=== PATIENT | female | born 1985 | race Caucasian/White ===

== ENCOUNTER 2018-05-11 06:30 | Inpatient (IN) ==
[~2018-05-11 06:30] MED LIST: ANCEF 1 GRAM IV PREMIX* 1 G/50 ML BAG IV ONE; D5 1/2 NS 1000 ML 1,000 ML IV ONE; D5LR 1L W PITOCIN 10 UNITS/L 10 UNITS/1,000 ML BAG IV ONE; PITOCIN ONE
[2018-05-11] MEDS ORDERED: REGLAN INJ 10 MG VIAL IVP PRN ×2 (06:38→17:04)
[2018-05-11] MEDS ORDERED: D5 1/2 NS 1000 ML 1,000 ML IV SCH (06:38)
[2018-05-11] MEDS ORDERED: PHENERGAN INJ 25 MG IV PRN ×2 (06:38→16:34)
[2018-05-11] MEDS ORDERED: PITOCIN IVP ONE (06:38)
[2018-05-11] MEDS ORDERED: NUBAIN INJ 200 MG VIAL MULTIDOSE IVP PRN (06:38)
[2018-05-11] MEDS ORDERED: D5LR 1L W PITOCIN 10 UNITS/L 10 UNITS/1,000 ML BAG IV PRN (06:38)
[2018-05-11] MEDS ORDERED: MORPHINE SULFATE INJ 2 MG INJ IVP PRN (06:38)
--- NOTE | 2018-05-11 07:11 | DR.OB ---
OB Quick Note - Assessment/Plan Assessment/Plan: L&D 05/11/18 at 7:05am S-No complaint. O-Afebrile,VSS NZN=742 with good LTV, +accel, no decel. CTX=none CVX=2cm/50%/-1/VTX AROM with clear fluid. IUPC and FSE placed. A-IUP at 38 6/7 weeks for induction A1DM CHTN P-Begin pitocin induction F/U labs Anticipate with PP BTL as desired
[2018-05-11 07:14] LABS: URIC ACID 4.9 mg/dL (2.6-6.0)
[2018-05-11] MEDS: NORMODYNE TAB 100 MG PO SCH ×4 (07:16→21:21)
[2018-05-11] MEDS ORDERED: NORMODYNE TAB 100 MG ONE (07:17)
[2018-05-11] MEDS ORDERED: ZOFRAN INJ 4 MG VIAL ONE (09:42)
[2018-05-11] MEDS ORDERED: DIPRIVAN VIAL ONE (09:42)
[2018-05-11] MEDS ORDERED: XYLOCAINE 2 % (PLAIN) ONE (09:42)
[2018-05-11] MEDS ORDERED: LR 1000 ML IV 1,000 ML IV ONE ×2 (11:30→12:55)
[2018-05-11] MEDS ORDERED: XYLOCAINE 1 % (PLAIN) ONE (11:30)
[2018-05-11] MEDS ORDERED: NAROPIN EPIDURAL 0.2% + FENTANYL 90MCG 60 ML EPI ONE (11:31)
[2018-05-11] MEDS ORDERED: FENTANYL INJ 100 mcg ONE (11:31)
[2018-05-11] MEDS ORDERED: ADRENALINE CHL INJ ONE (11:31)
--- NOTE | 2018-05-11 11:57 | DR.OB ---
OB Quick Note - Assessment/Plan Assessment/Plan: L&D 05/11/18 at 11:50am Pitocin=16mu/min. S-No complaint. O-Afebrile,VSS FXH=816 with good LTV, +accel, no decel. CTX=q 1 1/2 to 2 min., about 45-65mmHg CVX=3cm/75%/-1 A-IUP at 38 6/7 weeks for induction A1DM CHTN P-Cont. pitocin induction Anticipate
[2018-05-11] MEDS ORDERED: XYLOCAINE 2% and EPINEPHRINE 1:100,000 ONE (12:54)
[2018-05-11] MEDS ORDERED: FENTANYL INJ 100 mcg EPI ONE (12:57)
[2018-05-11] MEDS ORDERED: NAROPIN EPIDURAL 0.2% + FENTANYL 90MCG EPI SCH (13:00)
[2018-05-11] MEDS ORDERED: D5 1/2 NS 1L W PITOCIN 20 UNITS/L 20 UNITS/1,000 ML BAG IV ONE (14:55)
[2018-05-11] MEDS ORDERED: ANCEF 1 GRAM IV PREMIX* 1 G/50 ML BAG IV ONE (16:27)
[2018-05-11] MEDS: D5 1/2 NS 1000 ML 1,000 ML with PITOCIN 20 UNITS IV SCH ×2 (16:30)
--- NOTE | 2018-05-11 16:38 | DR.OB ---
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 Head delivered over intact perineum. No nuchal cord. Nose and mouth bulb suctioned. Body delivered over intact perineum. Cord clamped x 2 and cut. handed to attendants. Cord sent for gases. Placenta delivered spontaneously / intact / 3 vessel cord. No CVX / vaginal / perineal tears. Viable female infant, VTX/OA, wt=8'0" and 9/9, stable to NBN. Mother stable to RR. WTJ=071lb.
[2018-05-11] MEDS ORDERED: BENADRYL INJ 50 MG VIAL IVP PRN (17:04)
[2018-05-11] MEDS ORDERED: PHENERGAN INJ 25 MG IVP PRN (17:04)
[2018-05-11] MEDS ORDERED: ZOFRAN INJ 4 MG VIAL IVP PRN (17:04)
[2018-05-11] MEDS ORDERED: DILAUDID INJ IVP PRN (17:04)
[2018-05-11] MEDS ORDERED: MYLICON TAB 80 MG CHEW PO PRN (17:29)
[2018-05-11] MEDS ORDERED: MILK OF MAGNESIA PO PRN ×2 (17:29)
[2018-05-11] MEDS ORDERED: DERMOPLAST SPRAY TOP PRN (17:29)
[2018-05-11] MEDS ORDERED: ADACEL or BOOSTRIX TDaP VACCINE IM ONE (17:29)
[2018-05-11] MEDS ORDERED: AMBIEN PO PRN ×2 (17:29)
[2018-05-11] MEDS: PERCOCET TAB 5/325 MG PO PRN (20:25)
[2018-05-11] MEDS: ZANTAC PO SCH (20:26)
[2018-05-12] MEDS: MOTRIN TAB 800 MG PO PRN ×2 (00:15→11:20)
[2018-05-12] MEDS: D5 1/2 NS 1000 ML 1,000 ML with PITOCIN 20 UNITS IV SCH ×2 (01:00)
[2018-05-12] MEDS: PERCOCET TAB 5/325 MG PO PRN ×3 (03:57→13:22)
[2018-05-12 05:18] LABS: HEMATOCRIT 25.1 % (36.0-47.0); HEMOGLOBIN 8.4 g/dL (12.0-16.0)
[2018-05-12] MEDS: NORMODYNE TAB 100 MG PO SCH (07:50)
[2018-05-12] MEDS: ZANTAC PO SCH (08:00)
[2018-05-12] MEDS ORDERED: PRENATAL PLUS PO SCH (09:00)
[2018-05-12 16:33] VITALS: BP 100/64
== END 2018-05-12 16:59 | disposition home or self-care (01) | DRG 767 ==
LOC: LD 06:31 → MED/SURG 17:51
PROVIDERS: ADMIT Specialist; ATTEND Specialist
DX: O99.013 Anemia complicating pregnancy, third trimester; D50.8 Other iron deficiency anemias; Z3A.38 38 weeks gestation of pregnancy; O13.3 Gestational [pregnancy-induced] hypertension without significant proteinuria, third trimester; O10.013 Pre-existing essential hypertension complicating pregnancy, third trimester; Z37.0 Single live birth; Z30.2 Encounter for sterilization; O24.410 Gestational diabetes mellitus in pregnancy, diet controlled
CPT/HCPCS: 36415; 59409; 80048; 80307; 81001; 83615; 84450; 84460; 84550; 85014; 85018; 85025; 85384; 85610; 85730; 86592; 86850; 86900; 86901; A4216; A4222; S0197; G0434; J0171; J0690; J2001; J2405; J2590; J2704; J3010; J7120; S5010